=== PATIENT | male | born 1955 ===

== ENCOUNTER 2017-12-30 09:38 | Outpatient (CLI) | payer OTHER ==
[~2017-12-30] VITALS: Ht 177.8 cm; Wt 81.6 kg
== END 2017-12-30 10:10 | disposition home or self-care (01) ==
LOC: OFIC 805 09:38
DX: H61.23 Impacted cerumen, bilateral (principal); H90.3 Sensorineural hearing loss, bilateral

== ENCOUNTER 2018-01-12 09:15 | Outpatient (CLI) | payer OTHER ==
[~2018-01-12] VITALS: Ht 152.4 cm; Wt 81.6 kg
== END 2018-01-12 09:30 | disposition home or self-care (01) ==
LOC: OFIC 805 09:15
DX: G47.39 Other sleep apnea (principal); J30.89 Other allergic rhinitis; J34.89 Other specified disorders of nose and nasal sinuses

== ENCOUNTER 2018-02-10 09:28 | Outpatient (CLI) | payer OTHER ==
[~2018-02-10] VITALS: Ht 152.4 cm; Wt 81.6 kg
[2018-02-20] MEDS ORDERED: SIMVASTATIN20 MG PO (08:50)
== END 2018-02-10 09:45 | disposition home or self-care (01) ==
LOC: OFIC 805 09:28
DX: J30.89 Other allergic rhinitis (principal); J01.00 Acute maxillary sinusitis, unspecified; J34.89 Other specified disorders of nose and nasal sinuses; J34.2 Deviated nasal septum

== ENCOUNTER 2018-02-23 05:45 | Day surgery (SDC) | payer OTHER ==
[~2018-02-23 05:45] MED LIST: SIMVASTATIN20 MG PO
== END 2018-02-23 16:26 | disposition home or self-care (01) ==
LOC: CIR.AMB 05:45
DX: J34.89 Other specified disorders of nose and nasal sinuses (principal); J32.0 Chronic maxillary sinusitis; J34.2 Deviated nasal septum

== ENCOUNTER 2018-03-03 10:45 | Outpatient (CLI) | payer OTHER ==
[~2018-03-03] VITALS: Ht 152.4 cm; Wt 81.6 kg
== END 2018-03-03 11:00 | disposition home or self-care (01) ==
LOC: OFIC 805 10:45
DX: J34.89 Other specified disorders of nose and nasal sinuses (principal); J34.2 Deviated nasal septum; J01.00 Acute maxillary sinusitis, unspecified

== ENCOUNTER 2018-03-10 09:09 | Outpatient (CLI) | payer OTHER ==
[~2018-03-10] VITALS: Ht 152.4 cm; Wt 81.6 kg
== END 2018-03-10 09:25 | disposition home or self-care (01) ==
LOC: OFIC 805 09:09
DX: J34.2 Deviated nasal septum (principal); J32.0 Chronic maxillary sinusitis; J34.89 Other specified disorders of nose and nasal sinuses

== ENCOUNTER 2018-04-27 09:09 | Outpatient (CLI) | payer OTHER ==
[~2018-04-27] VITALS: Ht 152.4 cm; Wt 81.6 kg
== END 2018-04-27 09:20 | disposition home or self-care (01) ==
LOC: OFIC 805 09:09
DX: J30.89 Other allergic rhinitis (principal); G47.39 Other sleep apnea; J34.89 Other specified disorders of nose and nasal sinuses

== ENCOUNTER 2018-11-30 14:17 | Outpatient (CLI) | payer OTHER ==
[~2018-11-30] VITALS: Ht 152.4 cm; Wt 81.6 kg
== END 2018-11-30 14:35 | disposition home or self-care (01) ==
LOC: OFIC 805 14:17
DX: R04.0 Epistaxis (principal); R06.83 Snoring

== ENCOUNTER 2018-12-25 14:41 | Outpatient (CLI) | payer OTHER ==
[~2018-12-25] VITALS: Ht 152.4 cm; Wt 81.6 kg
== END 2018-12-25 15:00 | disposition home or self-care (01) ==
LOC: OFIC 805 14:41
DX: J30.89 Other allergic rhinitis (principal)